=== PATIENT | male | born 1965 | race Caucasian/White ===

== ENCOUNTER 2018-02-25 13:12 | Inpatient (IN) | payer SELFPAY ==
[~2018-02-25] VITALS: Ht 167.6 cm; Wt 68.4 kg
[2018-02-25 13:20] VITALS: BP 175/100; PULSE 93; RESP 18; TEMP 98.9; O2SAT 98
[2018-02-25] MEDS ORDERED: SODIUM CHLOR 0.9% 1000 ML INJ 1,000 ML IV ONE (13:55)
[2018-02-25] MEDS ORDERED: PIPERACIL-TAZO 4.5 GM PREMIX 100 ML IV STA (13:55)
[2018-02-25] MEDS ORDERED: CLINDAMYCIN INJ 900 MG in SODIUM CHLORIDE 0.9% INJ 100 ML IV STA (13:55)
[2018-02-25] MEDS ORDERED: VANCOMYCIN INJ 1,000 MG in SODIUM CHLOR 0.9% 250 ML INJ 250 ML IV STA (13:55)
[2018-02-25] MEDS ORDERED: CLINDAMYCIN 900 MG/NS PREMIX 50 ML IV ONE (14:00)
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
--- NOTE | 2018-02-25 14:29 | RADRPT ---
EXAM DATE/TIME: 02/25/2018 14:02 [facility] COMPARISON: No previous studies available for comparison. INDICATIONS : Right rib pain post fall off ladder a few weeks ago. MEDICAL HISTORY : None. SURGICAL HISTORY : None. ENCOUNTER: Initial ACUITY: 3 weeks PAIN SCORE: 6/10 LOCATION: Right ribs FINDINGS: No infiltrate, effusion or pneumothorax. Parenchymal scarring and upper lobe predominant emphysema pr esent, right worse than left. Apparent old, healed fractures posterolaterally of the right eighth and ninth ribs. I don't clearly s ee an acute rib fracture. CONCLUSION: No acute cardiopulmonary disease demonstrated. Emphysema. Nick Treviño MD on February 25, 2018 at 14:25 Board Certified Radiologist. This report was verified electronically.
--- NOTE | 2018-02-25 14:31 | RADRPT ---
EXAM DATE/TIME: 02/25/2018 14:02 [facility] COMPARISON: No previous studies available for comparison. INDICATIONS : Anterior lower leg wound x 3 weeks. MEDICAL HISTORY : None. SURGICAL HISTORY : None. ENCOUNTER: Initial ACUITY: 3 weeks PAIN SCORE: 10/10 LOCATION: Left anterior lower leg FINDINGS: Deep soft tissue defect/ulcer seen in the pretibial soft tissues at the level of the mid leg. The lef t tibia and fibula are intact. No periosteal reaction or bone destruction demonstrated. CONCLUSION: Deep soft tissue defect without appreciable acute bony abnormality. Nick Treviño MD on February 25, 2018 at 14:27 Board Certified Radiologist. This report was verified electronically.
[2018-02-25 14:43] LABS: AUTOMATED NEUTROPHIL # 12.5 TH/MM3 (1.8-7.7); BASOPHIL # 0.1 TH/MM3 (0-0.2); BASOPHIL % 0.7 % (0.0-2.0); EOSINOPHIL # 0.5 TH/MM3 (0-0.4); EOSINOPHIL % 2.4 % (0.0-4.0); HEMATOCRIT 43.7 % (39.0-51.0); LYMPH % 22.3 % (9.0-44.0); LYMPHOCYTE # 4.2 TH/MM3 (1.0-4.8); MEAN CELL VOLUME 94.6 FL (80.0-100.0); MEAN CORPUSCULAR HEMOGLOBIN 32.4 PG (27.0-34.0); MEAN CORPUSCULAR HGB CONC 34.3 % (32.0-36.0); MEAN PLATELET VOLUME 6.9 FL (7.0-11.0); MONOCYTE # 1.7 TH/MM3 (0-0.9); NEUT % 65.6 % (16.0-70.0); PLATELET COUNT 72 TH/MM3 (150-450); RED BLOOD COUNT 4.62 MIL/MM3 (4.50-5.90); RED CELL DISTRIBUTION WIDTH 13.4 % (11.6-17.2)
[2018-02-25 14:47] LABS: CHLORIDE 107 MEQ/L (98-107); SODIUM (NA) 138 MEQ/L (136-145)
[2018-02-25 14:50] LABS: CALCIUM 9.6 MG/DL (8.5-10.1)
[2018-02-25 14:51] LABS: ALBUMIN 3.2 GM/DL (3.4-5.0); BICARBONATE 23.4 MEQ/L (21.0-32.0); BLOOD UREA NITROGEN 12 MG/DL (7-18); GLUCOSE,RANDOM 88 MG/DL (74-106)
[2018-02-25 14:53] VITALS: RESP 17; O2SAT 97
[2018-02-25 14:54] LABS: ALT (GPT) 20 U/L (12-78); AST (GOT) 19 U/L (15-37); CREATININE 0.79 MG/DL (0.60-1.30); GLOMERULAR FILTRATION RATE 104 ML/MIN (>89)
[2018-02-25 14:55] LABS: TOTAL BILIRUBIN ADULT 0.4 MG/DL (0.2-1.0)
[2018-02-25 14:56] LABS: TOTAL PROTEIN 8.1 GM/DL (6.4-8.2)
[2018-02-25 14:57] LABS: ALKALINE PHOSPHATASE 78 U/L (45-117)
[2018-02-25 15:00] VITALS: BP 137/81; PULSE 71; RESP 16; O2SAT 97
[2018-02-25] MEDS ORDERED: MORPHINE SULFATE 2 MG/ML SYRINGE IV PUSH ONE (15:00)
[2018-02-25] MEDS ORDERED: NALOXONE HCL 0.4 MG/ML AMP IV PUSH PRN (15:30)
[2018-02-25] MEDS ORDERED: MAGNESIUM HYDROXIDE SUSP 30 ML CUP PO PRN (15:30)
[2018-02-25] MEDS ORDERED: Vancomycin Consult Pharmacy 1 EA OTHER SCH (15:30)
[2018-02-25] MEDS ORDERED: SODIUM CHLORIDE 0.9% FLUSH 10 ML FLUSH IV FLUSH PRN (15:30)
[2018-02-25] MEDS ORDERED: ACETAMINOPHEN 325 MG TAB PO PRN (15:30)
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
[2018-02-25] MEDS: SODIUM CHLOR 0.9% 1000 ML INJ 1,000 ML IV SCH ×2 (15:52→18:23)
[2018-02-25 16:32] VITALS: BP 133/75; PULSE 58; RESP 16; O2SAT 96
[2018-02-25] MEDS ORDERED: GADODIAMIDE PF 287 MG/ML 5 ML VIAL (for RAD MRI) IVCONTRAST ONE (18:01)
--- NOTE | 2018-02-25 18:14 | RADRPT ---
EXAM DATE/TIME: 02/25/2018 17:19 [facility] COMPARISON: No previous studies available for comparison. INDICATIONS : Abscess. Necrotic left leg wound. Hit it on a ladder 3 weeks ago. CONTRAST: 12 cc Omniscan (gadodiamide) IV MEDICAL HISTORY : None. SURGICAL HISTORY : None. ENCOUNTER: Subsequent ACUITY: 3 weeks PAIN SCORE: 5/10 LOCATION: Left anterior lower leg. TECHNIQUE: Multiplanar multisequence MRI examination of the lower leg was performed with and without contrast. FINDINGS: There is a necrotic appearing soft tissue of the anterior aspect of the tibia. The necrotic portion o f the wound does not enhance postcontrast and there is extensive ulceration. The nonenhancing soft ti ssue extends to the periosteal surface of the mid tibia. However there is no significant marrow signa l abnormality within the tibia to suggest osteomyelitis at this point. There is some enhancing cellul itis around the medial and anterior leg. No discrete or drainable abscess. CONCLUSION: 1. Necrotic appearing soft tissue wound over the anterior leg extending to the periosteal surface of the tibia. There is associated cellulitis but no discrete or drainable abscess and no MR findings for osteomyelitis at this time. Bharat Stone MD on February 25, 2018 at 18:04 Board Certified Radiologist. This report was verified electronically.
[2018-02-25 18:15] VITALS: BP 141/94; PULSE 78; RESP 20; TEMP 98.6; O2SAT 95
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
[2018-02-25] MEDS: MORPHINE SULFATE 2 MG/ML SYRINGE IV PUSH PRN ×2 (20:16→23:48)
[2018-02-25] MEDS: SODIUM CHLORIDE 0.9% FLUSH 10 ML FLUSH IV FLUSH SCH (21:00)
[2018-02-25] MEDS: PIPERACIL-TAZO 4.5 GM PREMIX 100 ML IV SCH (23:48)
[2018-02-26] VITALS: BP 136/82; PULSE 59; RESP 20; TEMP 97.6; O2SAT 96
[2018-02-26] MEDS: MORPHINE SULFATE 2 MG/ML SYRINGE IV PUSH PRN ×2 (03:45→07:50)
[2018-02-26] MEDS: SODIUM CHLOR 0.9% 1000 ML INJ 1,000 ML IV SCH (03:48)
[2018-02-26] MEDS: VANCOMYCIN INJ 1,000 MG in SODIUM CHLOR 0.9% 250 ML INJ 250 ML IV SCH ×2 (05:58→16:10)
[2018-02-26 07:25] LABS: AUTOMATED NEUTROPHIL # 9.8 TH/MM3 (1.8-7.7); BASOPHIL # 0.1 TH/MM3 (0-0.2); BASOPHIL % 0.8 % (0.0-2.0); EOSINOPHIL # 0.6 TH/MM3 (0-0.4); EOSINOPHIL % 3.8 % (0.0-4.0); HEMATOCRIT 38.9 % (39.0-51.0); HEMOGLOBIN 13.2 GM/DL (13.0-17.0); LYMPH % 23.4 % (9.0-44.0); LYMPHOCYTE # 3.5 TH/MM3 (1.0-4.8); MEAN CELL VOLUME 94.2 FL (80.0-100.0); MEAN CORPUSCULAR HGB CONC 33.9 % (32.0-36.0); MONO % 8.2 % (0.0-8.0); MONOCYTE # 1.2 TH/MM3 (0-0.9); NEUT % 63.8 % (16.0-70.0); RED BLOOD COUNT 4.13 MIL/MM3 (4.50-5.90); RED CELL DISTRIBUTION WIDTH 13.2 % (11.6-17.2); WHITE BLOOD COUNT 15.2 TH/MM3 (4.0-11.0)
[2018-02-26 07:38] LABS: BICARBONATE 24.4 MEQ/L (21.0-32.0); CALCIUM 8.6 MG/DL (8.5-10.1); CREATININE 0.79 MG/DL (0.60-1.30)
[2018-02-26] MEDS: PIPERACIL-TAZO 4.5 GM PREMIX 100 ML IV SCH ×2 (07:50→15:37)
[2018-02-26 08:02] VITALS: BP 142/80; PULSE 55; RESP 16; TEMP 97.6; O2SAT 97
[2018-02-26] MEDS ORDERED: LIDOCAINE 1%/EPINEPHrine 1:100,000 SOLN 20 ML VIAL ONE (08:56)
[2018-02-26] MEDS ORDERED: BUPIVACAINE/EPINEPHRINE 0.25% PF 30 ML VIAL ONE (09:36)
[2018-02-26] MEDS ORDERED: BUPIVACAINE/EPINEPHRINE 0.5% PF 30 ML VIAL ONE (09:37)
[2018-02-26 09:38] LABS: PLATELET COUNT 376 TH/MM3 (150-450)
[2018-02-26] MEDS ORDERED: POVIDONE IODINE 5% (ANTISEPSIS KIT) 4 APPLICATIONS EACH NARE PRN (10:00)
[2018-02-26] MEDS ORDERED: LACTATED RINGER'S 1000 ML IV PRN (10:00)
[2018-02-26] MEDS ORDERED: CHLORHEXIDINE GLUCONATE 2 % 1 PACK (2 CLOTHS) TOPICAL PRN (10:00)
[2018-02-26] MEDS ORDERED: METOPROLOL TARTRATE 25 MG TAB PO PRN (10:00)
[2018-02-26] MEDS ORDERED: SODIUM CHLORID 0.9% 500 ML IV PRN (10:00)
[2018-02-26] MEDS ORDERED: MORPHINE SULFATE 8 MG/ML INJ IV PUSH PRN (10:30)
[2018-02-26] MEDS ORDERED: DO NOT ADM ANY ANTICOAGULANT DRUGS PRN (10:33)
[2018-02-26] MEDS ORDERED: MIDAZOLAM HCL 2 MG/2 ML VIAL ONE (10:37)
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
[2018-02-26] MEDS: oxyCODONE/ACETAMINOPHEN 10 MG/325 MG TAB PO PRN ×3 (12:09→19:40)
[2018-02-26 12:38] VITALS: BP 145/87; PULSE 67; RESP 16; TEMP 98.1; O2SAT 95
--- NOTE | 2018-02-26 13:30 | HHI.PR ---
Subjective Remarks Patient seen and evaluated today in follow-up for left lower extremity infection status post I&D with wound VAC placement by general surgery. Doing well. Pain is better controlled Objective Vitals Vital Signs Date Time Temp Pulse Resp B/P (MAP) Pulse Ox O2 Delivery O2 Flow Rate FiO2 02/26/18 12:38 98.1 67 16 145/87 (106) 95 02/26/18 11:08 98.0 66 16 115/77 (90) 97 02/26/18 10:33 97.8 80 18 132/78 (96) 98 Room Air 02/26/18 09:25 98.0 56 20 137/89 (105) 94 02/26/18 08:02 97.6 55 16 142/80 (100) 97 02/26/18 00:00 97.6 59 20 136/82 (100) 96 02/25/18 18:15 98.6 78 20 141/94 (110) 95 02/25/18 17:40 02/25/18 16:32 58 16 133/75 (94) 96 Room Air 02/25/18 15:49 16 02/25/18 15:00 71 16 137/81 (99) 97 Room Air 02/25/18 14:53 17 97 Room Air 02/25/18 14:53 97 Room Air I/O 02/25/18 02/25/18 02/25/18 02/26/18 02/26/18 02/26/18 07:00 15:00 23:00 07:00 15:00 23:00 Intake Total 1400 ml 1340 ml 800 ml Balance 1400 ml 1340 ml 800 ml Intake Oral 240 ml IV Total 1400 ml 1100 ml Other 800 ml # Voids 2 # Bowel Movements 0 Result Diagram: 02/26/18 0850 02/26/18 0545 Objective Remarks GENERAL: This is a well-nourished, well-developed patient, in no apparent distress. CARDIOVASCULAR: Regular rate and rhythm without murmurs, gallops, or rubs. RESPIRATORY: Clear to auscultation. Breath sounds equal bilaterally. No wheezes , rales, or rhonchi. GASTROINTESTINAL: Abdomen soft, non-tender, nondistended. Normal active bowel sounds MUSCULOSKELETAL: Left lower extremity wound VAC with surrounding erythema, decreased edema overall, other 3 extremities without clubbing, cyanosis, or edema. NEURO: Alert & Oriented x4 to person, place, time, situation. Moves all ext x4 A/P Problem List: (1) Leg wound, left ICD Code: S81.802A - Unspecified open wound, left lower leg, initial encounter Plan: Continue broad spectrum IV antibiotics IV morphine for pain Gen Surg Consult postop day 0 status post debridement with wound VAC placement Follow-up cultures (2) Leucocytosis ICD Code: D72.829 - Elevated white blood cell count, unspecified Plan: Likely due to skin infection, continue following trend while on antibiotics Improved (3) Thrombocytopenia ICD Code: D69.6 - Thrombocytopenia, unspecified Plan: Probably due to sepsis/ etoh but will continue to follow for any further abnormalities and watch for excessive bleeding resolved Discharge Planning Continue IV antibiotics and wound care while inpatient Dottie Urbina MD Feb 26, 2018 13:30
[2018-02-26 16:22] VITALS: BP 113/70; PULSE 59; RESP 15; TEMP 97.4; O2SAT 97
[2018-02-26 20:00] VITALS: BP 115/79; PULSE 58; RESP 20; TEMP 97.3; O2SAT 97
[2018-02-26] MEDS: SODIUM CHLORIDE 0.9% FLUSH 10 ML FLUSH IV FLUSH SCH (21:00)
[2018-02-27] VITALS: BP 120/79; PULSE 56; RESP 20; TEMP 97.3; O2SAT 98
[2018-02-27] MEDS: PIPERACIL-TAZO 4.5 GM PREMIX 100 ML IV SCH ×4 (00:47→23:39)
[2018-02-27] MEDS: oxyCODONE/ACETAMINOPHEN 10 MG/325 MG TAB PO PRN ×6 (01:26→23:41)
[2018-02-27] MEDS ORDERED: PHARMACY ORDERED LAB ONE (05:45)
[2018-02-27] MEDS: VANCOMYCIN INJ 1,000 MG in SODIUM CHLOR 0.9% 250 ML INJ 250 ML IV SCH ×2 (06:09→17:52)
[2018-02-27 08:00] VITALS: BP 135/85; PULSE 62; RESP 17; TEMP 97.2; O2SAT 96
[2018-02-27] MEDS: SODIUM CHLORIDE 0.9% FLUSH 10 ML FLUSH IV FLUSH SCH ×2 (09:00→23:39)
--- NOTE | 2018-02-27 11:22 | HHI.PR ---
Subjective Remarks Patient seen and evaluated in follow-up for leg wounds. Postop day 1 status post I&D. Patient feels well. Tolerating antibiotics without difficulty. Planes of some insomnia overnight Objective Vitals Vital Signs Date Time Temp Pulse Resp B/P (MAP) Pulse Ox O2 Delivery O2 Flow Rate FiO2 02/27/18 08:00 97.2 62 17 135/85 (102) 96 02/27/18 00:00 97.3 56 20 120/79 (93) 98 02/26/18 20:00 97.3 58 20 115/79 (91) 97 02/26/18 16:22 97.4 59 15 113/70 (84) 97 02/26/18 12:38 98.1 67 16 145/87 (106) 95 I/O 02/26/18 02/26/18 02/26/18 02/27/18 02/27/18 02/27/18 07:00 15:00 23:00 07:00 15:00 23:00 Intake Total 1340 ml 1400 ml 800 ml 1200 ml Balance 1340 ml 1400 ml 800 ml 1200 ml Intake Oral 240 ml 800 ml 1200 ml IV Total 1100 ml 600 ml Other 800 ml # Voids 2 3 2 # Bowel Movements 0 0 Result Diagram: 02/26/18 0850 02/26/18 0545 Objective Remarks GENERAL: This is a well-nourished, well-developed patient, in no apparent distress. CARDIOVASCULAR: Regular rate and rhythm without murmurs, gallops, or rubs. RESPIRATORY: Clear to auscultation. Breath sounds equal bilaterally. No wheezes , rales, or rhonchi. GASTROINTESTINAL: Abdomen soft, non-tender, nondistended. Normal active bowel sounds MUSCULOSKELETAL: Left lower extremity wound VAC with improvement in surrounding erythema, decreased edema overall, other 3 extremities without clubbing, cyanosis, or edema. NEURO: Alert & Oriented x4 to person, place, time, situation. Moves all ext x4 A/P Problem List: (1) Leg wound, left ICD Code: S81.802A - Unspecified open wound, left lower leg, initial encounter Plan: Continue broad spectrum IV antibiotics IV morphine for pain Gen Surg Consult postop day 1 status post debridement with wound VAC placement Follow-up cultures (2) Leucocytosis ICD Code: D72.829 - Elevated white blood cell count, unspecified Plan: Likely due to skin infection, continue following trend while on antibiotics Improved (3) Thrombocytopenia ICD Code: D69.6 - Thrombocytopenia, unspecified Plan: Probably due to sepsis/ etoh but will continue to follow for any further abnormalities and watch for excessive bleeding resolved Discharge Planning Continue IV antibiotics and wound care while inpatient May need home health care, Dottie Franco MD Feb 27, 2018 11:22
[2018-02-27 12:00] VITALS: BP 121/75; PULSE 56; RESP 15; TEMP 97.8; O2SAT 97
[2018-02-27 16:00] VITALS: BP 131/74; PULSE 60; RESP 13; TEMP 98.1; O2SAT 97
[2018-02-27] MEDS ORDERED: VANCOMYCIN TROUGH ONE (17:45)
[2018-02-27 20:00] VITALS: BP 134/88; PULSE 56; RESP 20; TEMP 98.1; O2SAT 96
[2018-02-27] MEDS: ZOLPIDEM TARTRATE 10 MG TAB PO PRN (23:39)
[2018-02-27] MEDS: SODIUM CHLOR 0.9% 1000 ML INJ 1,000 ML IV SCH ×2 (23:41→23:45)
[2018-02-28] VITALS: BP 130/85; PULSE 53; RESP 20; TEMP 97.7; O2SAT 96
[2018-02-28] MEDS: VANCOMYCIN INJ 1,000 MG in SODIUM CHLOR 0.9% 250 ML INJ 250 ML IV SCH ×3 (02:15→17:58)
[2018-02-28] MEDS: oxyCODONE/ACETAMINOPHEN 10 MG/325 MG TAB PO PRN ×5 (03:35→19:08)
[2018-02-28 08:00] VITALS: BP 158/94; PULSE 59; RESP 18; TEMP 97.8; O2SAT 97
[2018-02-28] MEDS ORDERED: HYDROmorphone HCL PF 2 MG/ML VIAL IV PUSH ONE (09:00)
[2018-02-28] MEDS: SODIUM CHLORIDE 0.9% FLUSH 10 ML FLUSH IV FLUSH SCH ×2 (09:11→21:11)
[2018-02-28] MEDS: PIPERACIL-TAZO 4.5 GM PREMIX 100 ML IV SCH ×3 (09:11→22:32)
[2018-02-28 09:20] LABS: CREATININE 0.81 MG/DL (0.60-1.30)
--- NOTE | 2018-02-28 09:38 | PD.WCN.NOT ---
Wound Consult Description: Wound consult ordered by for Left left wound VAC Neg Pressure Wound Therapy Wound Location Wound Location: Left lower anterior mejia Wound Description Length: 7.3cm Width: 8.8cm Depth: 1.0cm Wound bed appearance: 50% beefy red granulated tissue , 25% moist exposed tendon , 25% facia Periwound appearance: Unremarkable Settings Suction: 125 mmHg, Continuous Intensity: Low Other Information: Windowpaned Foam type: Black Number of pieces: 1 Additonal Information Patient was seen today by newspaper writer on 3rd floor [facility] for wound vac change to left lower extremity.Patient alert and oriented x3.Patient was medicated 30 min prior to dressing change.Dressing/sponge removed with difficulty sponge was adhered to fascia and tendon.normal saline soak applied x5 min prior to removing sponge .Wound base cleansed with normal saline pat dry skin prep applied to dax wound.Wound was window paned with drape to protection.Single piece black sponge applied cut to fit wound base and track pad applied suction started @ 125mmHg with no leaks noted.Patient tolerated dressing change well though facial grimacing noted.Call place to I rep for possible barry VAC for home use. Dami Mccartney LISA Feb 28, 2018 09:38
--- NOTE | 2018-02-28 11:07 | HHI.PR ---
Subjective Remarks Patient seen and evaluated in follow-up for left and wound VAC placement Positive MRSA cultures Objective Vitals Vital Signs Date Time Temp Pulse Resp B/P (MAP) Pulse Ox O2 Delivery O2 Flow Rate FiO2 02/28/18 09:50 18 02/28/18 09:11 18 02/28/18 08:00 97.8 59 18 158/94 (115) 97 02/28/18 00:00 97.7 53 20 130/85 (100) 96 02/27/18 20:00 98.1 56 20 134/88 (103) 96 02/27/18 16:00 98.1 60 13 131/74 (93) 97 02/27/18 12:00 97.8 56 15 121/75 (90) 97 I/O 02/27/18 02/27/18 02/27/18 02/28/18 02/28/18 02/28/18 07:00 15:00 23:00 07:00 15:00 23:00 Intake Total 1300 ml 770 ml 715 ml Output Total 500 ml Balance 1300 ml 270 ml 715 ml Intake Oral 1200 ml 420 ml IV Total 100 ml 350 ml 715 ml Output Urine Total 500 ml # Voids 2 # Bowel Movements 0 2 Result Diagram: 02/26/18 0850 02/28/18 0850 Objective Remarks GENERAL: This is a well-nourished, well-developed patient, in no apparent distress. CARDIOVASCULAR: Regular rate and rhythm without murmurs, gallops, or rubs. RESPIRATORY: Clear to auscultation. Breath sounds equal bilaterally. No wheezes , rales, or rhonchi. GASTROINTESTINAL: Abdomen soft, non-tender, nondistended. Normal active bowel sounds MUSCULOSKELETAL: Left lower extremity wound VAC with improvement in surrounding erythema, decreased edema overall, other 3 extremities without clubbing, cyanosis, or edema. NEURO: Alert & Oriented x4 to person, place, time, situation. Moves all ext x4 A/P Problem List: (1) Leg wound, left ICD Code: S81.802A - Unspecified open wound, left lower leg, initial encounter Plan: Continue IV antibiotics IV morphine for pain Gen Surg Consult postop day 2 status post debridement with wound VAC placement Positive cultures are positive for MRSA and group B strep (2) Leucocytosis ICD Code: D72.829 - Elevated white blood cell count, unspecified Plan: Likely due to skin infection, continue following trend while on antibiotics Improved (3) Thrombocytopenia ICD Code: D69.6 - Thrombocytopenia, unspecified Plan: Probably due to sepsis/ etoh but will continue to follow for any further abnormalities and watch for excessive bleeding resolved Discharge Planning Continue IV antibiotics and wound care while inpatient May need home health care, barry versus outpatient wound care with traditional non-VAC wound care Dottie Urbina MD Feb 28, 2018 11:07
[2018-02-28 12:00] VITALS: BP 152/89; PULSE 82; RESP 16; TEMP 97.2; O2SAT 98
[2018-02-28] MEDS: SODIUM CHLOR 0.9% 1000 ML INJ 1,000 ML IV SCH (12:51)
[2018-02-28] MEDS: KETOROLAC TROMETHAMINE 30 MG/ML (IVP) VIAL IV PUSH PRN (12:56)
[2018-02-28 16:00] VITALS: BP 138/84; PULSE 46; RESP 16; TEMP 97.3; O2SAT 97
[2018-02-28 20:35] VITALS: BP 146/87; PULSE 55; RESP 16; TEMP 97.7; O2SAT 94
[2018-02-28] MEDS ORDERED: oxyCODONE HCL 20 MG CONTROLLED RELEASE TAB PO SCH (21:00)
[2018-02-28] MEDS: ZOLPIDEM TARTRATE 10 MG TAB PO PRN (22:32)
[2018-03-01 00:35] VITALS: BP 116/77; PULSE 52; RESP 16; TEMP 96.9; O2SAT 95
[2018-03-01] MEDS ORDERED: PHARMACY ORDERED LAB ONE (01:45)
[2018-03-01] MEDS: VANCOMYCIN INJ 1,000 MG in SODIUM CHLOR 0.9% 250 ML INJ 250 ML IV SCH ×2 (02:12→13:19)
[2018-03-01] MEDS: oxyCODONE/ACETAMINOPHEN 10 MG/325 MG TAB PO PRN ×5 (02:13→23:35)
[2018-03-01] MEDS: SODIUM CHLOR 0.9% 1000 ML INJ 1,000 ML IV SCH ×2 (06:00→08:29)
[2018-03-01 06:58] LABS: AUTOMATED NEUTROPHIL # 8.1 TH/MM3 (1.8-7.7); BASOPHIL # 0.1 TH/MM3 (0-0.2); BASOPHIL % 0.7 % (0.0-2.0); EOSINOPHIL # 0.5 TH/MM3 (0-0.4); EOSINOPHIL % 3.9 % (0.0-4.0); HEMATOCRIT 36.5 % (39.0-51.0); HEMOGLOBIN 11.9 GM/DL (13.0-17.0); LYMPH % 23.3 % (9.0-44.0); LYMPHOCYTE # 2.9 TH/MM3 (1.0-4.8); MEAN CELL VOLUME 94.6 FL (80.0-100.0); MEAN CORPUSCULAR HEMOGLOBIN 30.9 PG (27.0-34.0); MEAN CORPUSCULAR HGB CONC 32.6 % (32.0-36.0); MEAN PLATELET VOLUME 6.8 FL (7.0-11.0); MONO % 7.4 % (0.0-8.0); MONOCYTE # 0.9 TH/MM3 (0-0.9); NEUT % 64.7 % (16.0-70.0); RED BLOOD COUNT 3.86 MIL/MM3 (4.50-5.90); RED CELL DISTRIBUTION WIDTH 13.2 % (11.6-17.2); WHITE BLOOD COUNT 12.5 TH/MM3 (4.0-11.0)
[2018-03-01 07:10] LABS: CALCIUM 8.6 MG/DL (8.5-10.1)
[2018-03-01 07:11] LABS: BICARBONATE 25.6 MEQ/L (21.0-32.0)
[2018-03-01 07:14] LABS: CREATININE 0.86 MG/DL (0.60-1.30)
[2018-03-01 08:00] VITALS: BP 139/89; PULSE 49; RESP 18; TEMP 97.8; O2SAT 96
[2018-03-01 08:03] LABS: PLATELET COUNT 465 TH/MM3 (150-450)
[2018-03-01] MEDS: PIPERACIL-TAZO 4.5 GM PREMIX 100 ML IV SCH ×3 (08:24→23:35)
[2018-03-01] MEDS: SODIUM CHLORIDE 0.9% FLUSH 10 ML FLUSH IV FLUSH SCH ×2 (08:29→20:13)
--- NOTE | 2018-03-01 11:19 | HHI.PR ---
Subjective Remarks Patient seen and evaluated today in follow-up for her left leg wound post surgical I&D. Doing well. No new complaints. Objective Vitals Vital Signs Date Time Temp Pulse Resp B/P (MAP) Pulse Ox O2 Delivery O2 Flow Rate FiO2 03/01/18 08:00 97.8 49 18 139/89 (106) 96 03/01/18 07:01 20 03/01/18 04:13 03/01/18 00:35 96.9 52 16 116/77 (90) 95 02/28/18 22:11 16 02/28/18 20:35 97.7 55 16 146/87 (106) 94 02/28/18 16:00 97.3 46 16 138/84 (102) 97 02/28/18 14:08 18 02/28/18 12:00 97.2 82 16 152/89 (110) 98 I/O 02/28/18 02/28/18 02/28/18 03/01/18 03/01/18 03/01/18 07:00 15:00 23:00 07:00 15:00 23:00 Intake Total 715 ml 1100 ml 576 ml 1000 ml 582 ml Balance 715 ml 1100 ml 576 ml 1000 ml 582 ml Intake Oral 576 ml IV Total 715 ml 1100 ml 1000 ml 582 ml # Voids 10 3 # Bowel Movements 1 Result Diagram: 03/01/18 0547 03/01/18 0547 Objective Remarks GENERAL: This is a well-nourished, well-developed patient, in no apparent distress. CARDIOVASCULAR: Regular rate and rhythm without murmurs, gallops, or rubs. RESPIRATORY: Clear to auscultation. Breath sounds equal bilaterally. No wheezes , rales, or rhonchi. GASTROINTESTINAL: Abdomen soft, non-tender, nondistended. Normal active bowel sounds MUSCULOSKELETAL: Left lower extremity wound VAC with improvement in surrounding erythema, decreased edema overall, other 3 extremities without clubbing, cyanosis, or edema. NEURO: Alert & Oriented x4 to person, place, time, situation. Moves all ext x4 A/P Problem List: (1) Leg wound, left ICD Code: S81.802A - Unspecified open wound, left lower leg, initial encounter Plan: Continue IV antibiotics IV morphine for pain Gen Surg Consult postop day 3 status post debridement with wound VAC placement Positive cultures are positive for MRSA and group B strep (2) Leucocytosis ICD Code: D72.829 - Elevated white blood cell count, unspecified Plan: Likely due to skin infection, continue following trend while on antibiotics Improved (3) Thrombocytopenia ICD Code: D69.6 - Thrombocytopenia, unspecified Plan: Probably due to sepsis/ etoh but will continue to follow for any further abnormalities and watch for excessive bleeding resolved Discharge Planning Continue IV antibiotics and wound care while inpatient May need home health care, barry versus outpatient wound care with traditional non-VAC wound care Discharge home with oral antibiotics pending surgical clearance Dottie Urbina MD Mar 01, 2018 11:19
[2018-03-01 12:00] VITALS: BP 108/82; PULSE 47; RESP 18; TEMP 98.1; O2SAT 98
[2018-03-01] MEDS: KETOROLAC TROMETHAMINE 30 MG/ML (IVP) VIAL IV PUSH PRN ×2 (14:06→20:14)
[2018-03-01 16:00] VITALS: BP 130/87; PULSE 54; RESP 18; TEMP 98.9; O2SAT 98
[2018-03-01] MEDS: NAPROXEN 500 MG TAB PO SCH (20:13)
[2018-03-01 21:16] VITALS: BP 130/77; PULSE 62; RESP 18; O2SAT 94
[2018-03-01] MEDS: ZOLPIDEM TARTRATE 10 MG TAB PO PRN (23:44)
[2018-03-02 01:00] VITALS: BP 116/82; PULSE 55; RESP 16; TEMP 97.7; O2SAT 97
[2018-03-02] MEDS: VANCOMYCIN INJ 1,000 MG in SODIUM CHLOR 0.9% 250 ML INJ 250 ML IV SCH ×2 (01:32→13:24)
[2018-03-02] MEDS: oxyCODONE/ACETAMINOPHEN 10 MG/325 MG TAB PO PRN ×5 (03:35→21:45)
[2018-03-02 07:50] VITALS: BP 148/89; PULSE 53; RESP 20; TEMP 97; O2SAT 98
[2018-03-02] MEDS: PIPERACIL-TAZO 4.5 GM PREMIX 100 ML IV SCH ×2 (08:04→15:51)
[2018-03-02] MEDS: SODIUM CHLORIDE 0.9% FLUSH 10 ML FLUSH IV FLUSH SCH ×2 (08:08→20:54)
[2018-03-02 08:19] LABS: CREATININE 0.86 MG/DL (0.60-1.30)
[2018-03-02 11:50] VITALS: BP 148/94; PULSE 50; RESP 20; TEMP 98.1; O2SAT 95
--- NOTE | 2018-03-02 14:35 | HHI.PR ---
Subjective Remarks Patient seen around 11:30 this morning States she is doing okay. Was about to eat lunch. Pain control. No nausea or vomiting. Objective Vitals Vital Signs Date Time Temp Pulse Resp B/P (MAP) Pulse Ox O2 Delivery O2 Flow Rate FiO2 03/02/18 07:50 97.0 53 20 148/89 (108) 98 03/02/18 04:00 03/02/18 01:00 97.7 55 16 116/82 (93) 97 03/01/18 21:16 62 18 130/77 (94) 94 03/01/18 16:00 98.9 54 18 130/87 (101) 98 I/O 03/01/18 03/01/18 03/01/18 03/02/18 03/02/18 03/02/18 07:00 15:00 23:00 07:00 15:00 23:00 Intake Total 1000 ml 582 ml 250 ml Balance 1000 ml 582 ml 250 ml IV Total 1000 ml 582 ml 250 ml # Voids 3 4 5 # Bowel Movements 0 Result Diagram: 03/01/18 0547 03/02/18 0705 Imaging Last Impressions Tibia/Fibula X-Ray 02/25/18 1355 Signed Impressions: Service Date/Time: Sunday, February 25, 2018 14:02 - CONCLUSION: Deep soft tissue defect without appreciable acute bony abnormality. Nick Treviño MD Chest X-Ray 02/25/18 1355 Signed Impressions: Service Date/Time: Sunday, February 25, 2018 14:02 - CONCLUSION: No acute cardiopulmonary disease demonstrated. Emphysema. Nick Treviño MD Lower Extremity MRI 02/25/18 0000 Signed Impressions: Service Date/Time: Sunday, February 25, 2018 17:19 - CONCLUSION: 1. Necrotic appearing soft tissue wound over the anterior leg extending to the periosteal surface of the tibia. There is associated cellulitis but no discrete or drainable abscess and no MR findings for osteomyelitis at this time. Bharat Stone MD Objective Remarks GENERAL: Sitting on side of bed about to eat lunch CARDIOVASCULAR: Regular rate and rhythm without murmurs RESPIRATORY: Clear to auscultation. Breath sounds equal bilaterally. No wheezes GASTROINTESTINAL: Abdomen soft, non-tender, nondistended. Normal active bowel sounds MUSCULOSKELETAL: Left lower extremity wound VAC with improvement in surrounding erythema, mild edema noted, other 3 extremities without clubbing, edema. NEURO: Alert & Oriented. Moves all ext x4 A/P Problem List: (1) Leg wound, left ICD Code: S81.802A - Unspecified open wound, left lower leg, initial encounter (2) Leucocytosis ICD Code: D72.829 - Elevated white blood cell count, unspecified (3) Thrombocytopenia ICD Code: D69.6 - Thrombocytopenia, unspecified Assessment and Plan (1) Leg wound, left Continue IV antibiotics IV morphine for pain Gen Surg following postop day 4 status post debridement with wound VAC placement Positive cultures are positive for MRSA and group B strep (2) Leucocytosis Likely due to skin infection, trending down, currently at 12.5 (3) Thrombocytopenia Probably due to sepsis/ etoh but will continue to follow for any further abnormalities and watch for excessive bleeding resolved Discharge Planning Continue IV antibiotics and wound care while inpatient May need home health care, barry versus outpatient wound care with traditional non-VAC wound care Discharge home with oral antibiotics pending surgical clearance Kerry Rogers MD Mar 02, 2018 14:35
[2018-03-02 16:00] VITALS: BP 140/96; PULSE 65; RESP 20; TEMP 97.2; O2SAT 98
[2018-03-02 20:00] VITALS: BP 146/103; PULSE 54; RESP 16; TEMP 98; O2SAT 96
[2018-03-02] MEDS: NAPROXEN 500 MG TAB PO SCH (20:53)
[2018-03-03] VITALS: BP 148/94; PULSE 50; RESP 20; TEMP 97.4; O2SAT 100
[2018-03-03] MEDS: PIPERACIL-TAZO 4.5 GM PREMIX 100 ML IV SCH ×2 (00:33→09:11)
[2018-03-03] MEDS: oxyCODONE/ACETAMINOPHEN 10 MG/325 MG TAB PO PRN ×4 (01:43→12:59)
[2018-03-03] MEDS: ZOLPIDEM TARTRATE 10 MG TAB PO PRN (01:43)
[2018-03-03] MEDS: VANCOMYCIN INJ 1,000 MG in SODIUM CHLOR 0.9% 250 ML INJ 250 ML IV SCH (01:43)
[2018-03-03] MEDS ORDERED: PHARMACY ORDERED LAB ONE (01:45)
[2018-03-03 08:00] VITALS: BP 102/67; PULSE 67; RESP 17; TEMP 98; O2SAT 96
[2018-03-03] MEDS: SODIUM CHLORIDE 0.9% FLUSH 10 ML FLUSH IV FLUSH SCH (09:11)
[2018-03-03] MEDS ORDERED: VANCOMYCIN INJ 900 MG in SODIUM CHLOR 0.9% 250 ML INJ 250 ML IV SCH (10:00)
--- NOTE | 2018-03-03 12:12 | PD.WCN.NOT ---
Wound Consult Description: Left lower anterior mejia Communicated with: Amalia Ann RN Recommendation: 1. Cleanse Left lower extremity wound with normal saline pat dry. 2. Skin prep periwound, Leave Puracol in wound base for 7 days.starting 03/03 3. Apply Puracol AG to wound base cover with Maxorb and dry boarder dressing change dressing every 5- 7 day.or as needed for exudate/dislodgement. 4. Follow up with outpatient surgeon/wound center. Additional Information: Patient was seen today on 3rd floor [facility].Patient up ambulating in room upon writer editor arrival.patient independently positioned self in bed .Wound Vac dressing removed from left lower extremity with out difficulty.Wound cleansed with normal saline pat dry.Full thickness wound measures 7.3cm x 7.0cm x 0.8cm wound base ~75% beefy red granular tissue ~25% fascia Wound edges are well defined sloped with wound base.Moderate serosanguineous drainage noted without odor.Skin prep applied to periwound ,Puracol AG applied to wound base covered with Maxorb and dry boarder gauze.Supplies left with patient and instruction given on wound care /dressing change/ signs and symptoms of infection.Importance of follow up appointment.Patient tolerated wound care well and was able to verbalize teaching using teach back method. Neg Pressure Wound Therapy Wound Location Wound Location: Left lower anterior mejia Wound Description Length: 7.3cm Width: 8.8cm Depth: 1.0cm Wound bed appearance: 50% beefy red granulated tissue , 25% moist exposed tendon , 25% facia Settings Suction: 125 mmHg, Continuous Intensity: Low Other Information: Windowpaned Foam type: Black Number of pieces: 1 Daim Mccartney [facility] Mar 03, 2018 12:12
[2018-03-03 13:02] VITALS: BP 144/86; PULSE 50; RESP 16; TEMP 97.4; O2SAT 98
[2018-03-03] MEDS ORDERED: CEPH-461 PO (13:55)
[2018-03-03] MEDS ORDERED: NORC5TAB PO (13:55)
[2018-03-03] MEDS ORDERED: DOXY100C PO (13:55)
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
[2018-03-04] MEDS ORDERED: PHARMACY ORDERED LAB ONE (09:45)
== END 2018-03-03 14:23 | disposition home or self-care (01) | DRG 581 ==
LOC: PHED 13:12 → PHEDA 15:12 → PH3A 18:20
PROVIDERS: ADMIT Hospitalist; ATTEND Hospitalist
PROC: 2W1RX6Z Compression of Left Lower Leg using Pressure Dressing (ICD-10-PCS; 2018-02-26)
PROC: 0KBT0ZZ Excision of Left Lower Leg Muscle, Open Approach (ICD-10-PCS; principal; 2018-02-26 09:41)
DX: L08.9 Local infection of the skin and subcutaneous tissue, unspecified (principal); S81.802A Unspecified open wound, left lower leg, initial encounter; D69.6 Thrombocytopenia, unspecified; D72.829 Elevated white blood cell count, unspecified; F41.9 Anxiety disorder, unspecified; G47.00 Insomnia, unspecified; B95.62 Methicillin resistant Staphylococcus aureus infection as the cause of diseases classified elsewhere; F17.210 Nicotine dependence, cigarettes, uncomplicated; W11.XXXA Fall on and from ladder, initial encounter; V19.3XXA Pedal cyclist (driver) (passenger) injured in unspecified nontraffic accident, initial encounter; F12.90 Cannabis use, unspecified, uncomplicated
CPT/HCPCS: 71045; 73590; 73720; 80048; 80053; 80202; 82565; 83605; 85025; 86403; 87015; 87040; 87070; 87102; 87116; 87147; 87176; 87186; 87205; 87206; 88304; 88305; 96365; 96375; A9579; J1170; J1885; J2250; J2270; J2543; J3010; J3370; J7030; J7050